=== PATIENT | male | born 1970 | race Two or more races ===

== ENCOUNTER 2018-01-24 15:16 | Observation (INO) | payer OTHER ==
[~2018-01-24] VITALS: Ht 177.8 cm; Wt 95.3 kg
[2018-01-24] MEDS ORDERED: FAMOTIDINE 20 MG/2 ML VIAL IV STA (15:26)
[2018-01-24] MEDS ORDERED: ASPIRIN 325 MG TAB PO ONE (15:30)
[2018-01-24] MEDS: NITROGLYCERIN 0.4 MG SUBL SL PRN (15:58)
[2018-01-24 15:59] LABS: BASOPHILS % 0.5 % (0.0-1.0); EOSINOPHILS # (AUTO) 0.2 (0.0-0.4); HEMATOCRIT 43.5 % (38.2-49.6); HEMOGLOBIN 14.5 g/dL (14.0-18.0); LYMPHOCYTES # (AUTO) 1.4 (1.0-3.2); LYMPHOCYTES % 16.8 % (18.0-39.1); MEAN CORPUSCULAR HGB CONC 33.3 g/dL (31-35); MEAN CORPUSCULAR VOLUME 84.1 fL (81-99); MONOCYTES # (AUTO) 0.8 (0.2-0.8); MONOCYTES % 10.2 % (4.4-11.3); NEUTROPHILS # (AUTO) 5.7 (2.1-6.9); NEUTROPHILS % 70.3 % (38.7-80.0); PLATELET COUNT 252 x10e3/uL (140-360); RED BLOOD COUNT 5.17 x10e6/uL (4.3-5.7); RED CELL DISTRIBUTION WIDTH 13.3 % (11.7-14.4)
[2018-01-24 16:25] LABS: ALANINE AMINOTRANSFERASE 67 IU/L (0-55); ALBUMIN 3.9 g/dL (3.5-5.0); ALBUMIN/GLOBULIN RATIO 1.1 (0.8-2.0); ALKALINE PHOSPHATASE 71 IU/L (40-150); BLOOD UREA NITROGEN 14 mg/dL (7-26); BUN/CREATININE RATIO 15 (6-25); CALCIUM 9.1 mg/dL (8.4-10.2); CARBON DIOXIDE 23 mmol/L (22-29); CHLORIDE 106 mmol/L (98-107); CREATININE, SERUM 0.93 mg/dL (0.72-1.25); EST GLOMERULAR FILTRATION RATE > 60 ML/MIN (60-); GLUCOSE 95 mg/dL (74-118); SODIUM 140 mmol/L (136-145)
[2018-01-24 16:46] LABS: CREATINE KINASE 401 IU/L (30-200)
[2018-01-24] MEDS ORDERED: NITROGLYCERIN 0.4 MG SUBL SL PRN (17:15)
--- NOTE | 2018-01-24 17:16 | Diagnostic Imaging Report ---
EXAMINATION: CHEST SINGLE (PORTABLE) INDICATION: \S\chest pain \S\[id number] \S\1620 COMPARISON: None FINDINGS: AP view TUBES and LINES: None. LUNGS: Limited by low lung volumes and body habitus. There is no evidence of pneumonia or pulmonary edema. PLEURA: No pleural effusion or pneumothorax. HEART AND MEDIASTINUM: The cardiac silhouette is borderline enlarged on this AP view. Median sternotomy wires. BONES AND SOFT TISSUES: No acute osseous lesion. Soft tissues are unremarkable. UPPER ABDOMEN: No free air under the diaphragm. IMPRESSION: Limited study. No definite acute thoracic abnormality. Signed by: Dr. Phil Lombardi MD on 01/24/2018 5:13 PM
[2018-01-24] MEDS: FAMOTIDINE 20 MG/2 ML VIAL IV SCH (17:19)
[2018-01-24 20:00] VITALS: BP 137/90
[2018-01-24 20:02] VITALS: BP 137/90
[2018-01-24 20:08] VITALS: BP 137/90
[2018-01-24] MEDS ORDERED: MORPHINE SULFATE 2 MG/ML SYR IV PRN (20:30)
[2018-01-24] MEDS ORDERED: ACETAMINOPHEN 325 MG TAB PO PRN (20:30)
--- NOTE | 2018-01-24 21:21 | History and Physical ---
CHIEF COMPLAINT: Chest pain that started an hour before he reached to the emergency room. HISTORY OF PRESENT ILLNESS: Mr. Ceballos is a 47-year-old male with a strong family history of heart disease. Patient had myocardial infarction in 2011 where he was emergently sandoval to have CABG. He presented to the emergency room with chest pain radiating to the left arm. Chest pain was associated with mild shortness of breath. He also has history of obstructive sleep apnea, but he is noncompliant with use of CPAP. He has history of UPP surgery in the past. He denies any chest pain now. He was given nitroglycerin and that helped in his pain. REVIEW OF SYSTEMS GENERAL: Denies any fever or chills. HEAD: Denies any head trauma. ENT: Denies any earache. CVS: As above. RESPIRATORY: No shortness of breath. The rest of the review systems are negative except as in the HPI. PAST MEDICAL HISTORY: Coronary artery disease, obstructive sleep apnea, acid reflux disease, and patient had possible fundoplication surgery that is what it sounds like. PAST SURGICAL HISTORY: Hernia repair, CABG in 2011. FAMILY AND SOCIAL HISTORY: He does not smoke, does not drink. Lives with his . They are originally from [place] and recently moved to [place]. PHYSICAL EXAM VITAL SIGNS: Temperature 98.7, pulse of 80, blood pressure 120/77, respiratory rate of 18, O2 sat 93% on room air. HEENT: Head atraumatic, normocephalic. NECK: Supple. CHEST: Clear to auscultation bilaterally. No wheezing. No crackles. HEART: S1, S2 audible. ABDOMEN: Soft, nontender, nondistended. EXTREMITIES: No clubbing, cyanosis, or edema. NEUROLOGIC: Awake, alert. No focal neurologic deficit. LABS: White count of 8000, hemoglobin 14, hematocrit 48.5, platelets 252. Chemistry is within normal limits. First set of cardiac enzymes is normal. BNP is less than 10. D-dimer was 0.17. ASSESSMENT: Mr. Ceballos is a 47-year-old male with typical chest pain and history of coronary artery disease. PLAN 1. We will admit the patient and do 3 sets of cardiac enzymes to rule out acute coronary syndrome. 2. Cardiology consult. 3. Resume home medications. 4. IV morphine and p.o. Tylenol for pain control. 5. Famotidine IV for history of acid reflux. Job#: [id number] RTY
[2018-01-25] VITALS (7 sets, daily range): BP systolic 64–143; BP diastolic 64–90
[2018-01-25 00:46] LABS: CREATINE KINASE 330 IU/L (30-200)
[2018-01-25 05:10] LABS: CHOL/HDL RATIO 3.6 (3.9-4.7); CHOLESTEROL 113 MD/DL (0-199); CREATINE KINASE 309 IU/L (30-200); HDL CHOLESTEROL 31 MG/DL (40-60); LDL CHOLESTEROL 54 MG/DL (60-130); TRIGLYCERIDES 140 MG/DL (0-149)
[2018-01-25] MEDS: FAMOTIDINE 20 MG/2 ML VIAL IV SCH ×2 (05:17→16:19)
[2018-01-25] MEDS: NITROGLYCERIN 0.4 MG SUBL SL PRN (07:32)
[2018-01-25] MEDS: ASPIRIN 325 MG TAB EC PO SCH (08:48)
[2018-01-25] MEDS ORDERED: ASPIR 8181 MG (09:08)
[2018-01-25] MEDS ORDERED: ATORVASTATIN CA10 MG PO (09:08)
[2018-01-25] MEDS ORDERED: LISINOPRIL5 MG (09:08)
[2018-01-25] MEDS ORDERED: METOPROLOL TART25 MG PO (09:08)
[2018-01-25] MEDS ORDERED: OMEPRAZOLE40 MG PO (09:08)
[2018-01-25] MEDS ORDERED: CLOPIDOGREL BISULFATE 75 MG TAB PO ONE ×2 (09:15→10:00)
[2018-01-25 13:45] LABS: CREATINE KINASE 288 IU/L (30-200)
--- NOTE | 2018-01-25 15:57 | Consultation ---
DATE OF CONSULTATION: January 25, 2018 CARDIAC CONSULTATION REASON FOR CONSULTATION: Unstable coronary syndrome, possible myocardial infarction. HISTORY: This is a 47-year-old gentleman whom in 2011 had coronary artery bypass surgery in [place] for 2 vessels. He is known to have hypercholesterolemia very, very and very strong family history of coronary artery disease in addition to hypertension. Patient was in his usual status of health for the last week. Whenever he does physical activity, he feels smothering and not feeling well. Yesterday, he had prolonged chest pain, retrosternal, radiating to his arms, to his back, and he was very alarmed. He came in. His CKs were very mildly elevated, but troponins were normal. The patient at rest seems to be comfortable without any chest pain. Patient's symptoms started a week ago as described above. Prior to that, he was doing relatively well. He does not do vigorous activity usually. He works in [employer]. REVIEW OF SYSTEMS GENERAL: No fever, no chills. HEENT: Unremarkable. PULMONARY: No cough, no hemoptysis. No recent travel. CARDIAC: Worsening anginal chest pain as described above. No orthopnea. No paroxysmal nocturnal dyspnea, possible from sleep apnea, snoring at night. GI: GERD symptoms, but no hematemesis and no melena, nicely controlled with Prilosec of many years' duration. This pain is totally different from that. : No hematuria. No dysuria. MUSCULOSKELETAL: No aches. No pain. GENERAL: No fever. No chills. SOCIAL HISTORY: He is . He works in [employer]. He has never smoked. He is non-alcohol drinker. HOME MEDICATIONS: Include; 1. Aspirin 81 mg a day. 2. Atorvastatin 80 mg a day. 3. Metoprolol tartrate 25 mg twice a day. 4. Omeprazole 20 mg twice a day. ALLERGIES: PENICILLIN AND CODEINE; THE PENICILLIN ALLERGY IS QUESTIONABLE, CODEINE IS MAINLY OF NOT FEELING WELL. PAST MEDICAL HISTORY 1. Coronary artery bypass surgery for 2 vessels in 2011. 2. Hypertension. 3. Hypercholesterolemia. 4. Sleep apnea. 5. GERD. FAMILY HISTORY: Father had bypass surgery at very young age in his 30s. All his paternal uncles are with coronary artery disease in very young age. Mother is relatively doing well. She is hypertensive. No siblings, 2 stepchildren. PHYSICAL EXAMINATION VITAL SIGNS: Height of 5 feet 10 inches, weight of 210 pounds, blood pressure 120/70, heart rate of 70, and respiratory rate of 18. HEENT: Pupils are equal and reactive. NECK: No elevation of jugular venous pulsation. No bruit. CHEST: Clear to auscultation and percussion. HEART: PMI in 5th intercostal space. Normal 1st and 2nd heart sounds. ABDOMEN: Soft with good bowel sounds. EXTREMITIES: No cyanosis. No clubbing. No edema. NEUROLOGIC: Nonfocal. LABORATORY DATA: Sodium of 140, potassium of 4, BUN of 14, and creatinine of 0.93, glucose of 95. Hemoglobin of 14.5, hematocrit 43%, and white blood cell count of 8.1. CKs are elevated. Troponins are normal. Lipid profile showed triglycerides of 140, cholesterol of 113, HDL of 31, and LDL of 54. IMPRESSION AND PLAN 1. Unstable coronary syndrome with unstable angina in patient with known coronary artery disease, 2 vessels coronary artery bypass surgery in [place] in 2011. 2. Hypercholesterolemia. 3. Very strong family history of coronary artery disease at very young age. 4. Hypertension. Patient will be given loading dose of Plavix. He will be on serial cardiac enzymes. He will be on telemetry. Options of workup are discussed. Patient opted for cardiac catheterization with possible intervention. Procedure, risks, benefits, alternatives are discussed and explained. Job#: [id number] MISTI
[2018-01-25] MEDS: METOPROLOL TARTRATE 25 MG TAB PO SCH (16:18)
[2018-01-25] MEDS ORDERED: PROMETHAZINE HCL 25 MG TAB PO PRN (16:45)
[2018-01-25] MEDS ORDERED: METOPROLOL TARTRATE 25 MG TAB PO SCH (17:00)
[2018-01-25] MEDS ORDERED: ENOXAPARIN SOD INJ 40 MG/0.4 ML SYR SC SCH (17:00)
[2018-01-25] MEDS ORDERED: ATORVASTATIN 40 MG TAB PO SCH ×2 (21:00)
[2018-01-26] VITALS: BP 147/80
[2018-01-26] MEDS ORDERED: SODIUM CHLORIDE 0.9% 1000ML 1,000 ML IV SCH (03:01)
[2018-01-26 04:00] VITALS: BP 136/91
[2018-01-26 05:27] LABS: BASOPHILS # (AUTO) 0.1 (0.0-0.1); BASOPHILS % 0.7 % (0.0-1.0); EOSINOPHILS # (AUTO) 0.2 (0.0-0.4); EOSINOPHILS % 2.5 % (0.0-6.0); HEMATOCRIT 41.2 % (38.2-49.6); HEMOGLOBIN 13.6 g/dL (14.0-18.0); LYMPHOCYTES # (AUTO) 1.9 (1.0-3.2); LYMPHOCYTES % 23.7 % (18.0-39.1); MEAN CORPUSCULAR HEMOGLOBIN 27.6 pg (28-32); MEAN CORPUSCULAR VOLUME 83.7 fL (81-99); MONOCYTES # (AUTO) 0.9 (0.2-0.8); MONOCYTES % 11.4 % (4.4-11.3); NEUTROPHILS % 61.5 % (38.7-80.0); PLATELET COUNT 242 x10e3/uL (140-360); RED BLOOD COUNT 4.92 x10e6/uL (4.3-5.7); RED CELL DISTRIBUTION WIDTH 13.4 % (11.7-14.4)
[2018-01-26] MEDS: FAMOTIDINE 20 MG/2 ML VIAL IV SCH (05:39)
[2018-01-26 05:49] LABS: ALANINE AMINOTRANSFERASE 48 IU/L (0-55); ALBUMIN 3.5 g/dL (3.5-5.0); ALBUMIN/GLOBULIN RATIO 1.1 (0.8-2.0); ALKALINE PHOSPHATASE 69 IU/L (40-150); BLOOD UREA NITROGEN 12 mg/dL (7-26); BUN/CREATININE RATIO 13 (6-25); CALCIUM 8.9 mg/dL (8.4-10.2); CARBON DIOXIDE 23 mmol/L (22-29); CHLORIDE 107 mmol/L (98-107); EST GLOMERULAR FILTRATION RATE > 60 ML/MIN (60-); GLUCOSE 99 mg/dL (74-118); SODIUM 141 mmol/L (136-145)
[2018-01-26] MEDS ORDERED: PANTOPRAZOLE SOD 40 MG TABEC PO SCH (07:30)
[2018-01-26 08:30] VITALS: BP 141/94
[2018-01-26 08:32] VITALS: BP 141/94
[2018-01-26] MEDS ORDERED: LIDOCAINE HCL 1% LOCAL INJ 20 ML VIAL ONE (08:46)
[2018-01-26] MEDS ORDERED: IOPAMIDOL 370 MG/ML 200 ML INFUS..BTL INJ ONE (08:46)
[2018-01-26] MEDS ORDERED: HEPARIN SOD/SOD CHLORIDE 2,000 ML ONE (08:46)
[2018-01-26] MEDS ORDERED: SODIUM CHLORIDE 0.9% 1000ML 1,000 ML ONE (08:59)
[2018-01-26] MEDS ORDERED: MIDAZOLAM HCL 2 MG/2 ML VIAL ONE (09:00)
[2018-01-26] MEDS ORDERED: FENTANYL CITRATE/PF 100MCG/2 ML INJ ONE (09:00)
[2018-01-26] MEDS ORDERED: CLOPIDOGREL BISULFATE 75 MG TAB PO SCH (09:00)
[2018-01-26] MEDS: ASPIRIN 325 MG TAB EC PO SCH (10:00)
[2018-01-26] MEDS: METOPROLOL TARTRATE 25 MG TAB PO SCH (10:00)
[2018-01-26 11:26] VITALS: BP 112/64
--- NOTE | 2018-01-26 13:07 | Operative Report ---
DATE OF PROCEDURE: . TITLE OF PROCEDURE: Left cardiac catheterization with graft injection INDICATIONS 1. Coronary artery disease. 2. Prior coronary artery bypass surgery in 2011. 3. Presentation with unstable coronary syndrome, hyperlipidemia, very strong family history of premature coronary artery disease. TECHNICAL DETAILS: After discussions of the procedure's pros, cons, and discussion for invasive-noninvasive workup, patient insisted on having invasive workup because of his premature history of coronary artery disease at very young age, very strong family and his symptoms. For that reason, patient scheduled for his procedure. IV hydration started prior to the procedure. Patient brought to the cardiac laborer hide house. After the usual sterile preparation and draping procedure, intravenous Versed and fentanyl given for sedation, local Xylocaine for anesthesia. A 4-Macedonian sheath established in the right common femoral artery. Joycelyn left 4 and 3DRC catheters to engage the left main, right coronary artery, left internal mammary artery, and saphenous venous graft to the OM. Pigtail for hemodynamic measurement and left ventriculogram. At the end of the procedure, sheath was removed. Hemostasis achieved manually. No complication. No blood loss. RESULTS A. Coronary angiogram: 1. Left main: There is distal left main disease at 80%. 2. LAD: Large artery with minimal plaquing. 3. Circumflex coronary artery: Giving small 2 obtuse marginal branch. 4. Right coronary artery: Dominant artery with diffuse disease at 40%. 5. Left internal mammary artery to LAD is patent. 6. Saphenous venous graft to the 1st obtuse marginal is patent. The distal obtuse marginal is small artery 1 to 1.5 mm in diameter with several lesions at 50%. B. Hemodynamics: Aorta pressure 130/80. LV pressure 130/18. C. Left ventriculogram in the right anterior oblique view showed normal size ventricle with an ejection fraction of 60% to 70%. IMPRESSION 1. Severe left main coronary artery disease. 2. Mild coronary artery disease of all the arteries. 3. Patent left internal mammary artery to left anterior descending. 4. Patent saphenous venous graft to the obtuse marginal. 5. Left ventricular ejection fraction of 70%. COMPLICATIONS: None. BLOOD LOSS: None. RECOMMENDATIONS: Aggressive medical therapy. Job#: [id number] LPA
--- OUTSIDE RECORDS SUMMARY | 2018-01-27 13:46 | XMS REPORT ---
Author [facility] Address Unknown Phone Unavailable Care Team Providers Care [place] Operator Name Role Phone JEANNIE JORDAN Unavailable Unavailable Problems This patient has no known problems. Allergies, Adverse Reactions, Alerts This patient has no known allergies or adverse reactions. Medications This patient has no known medications. 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 LUNGS: Limited by low lung volumes and body habitus. There is no evidence of pneumonia or pulmonary edema. PLEURA: No pleural effusion or pneumothorax. HEART AND MEDIASTINUM: The cardiac silhouette is borderline enlarged on this AP view. Median sternotomy wires. BONES AND SOFT TISSUES: No acute osseous lesion. Soft tissues are unremarkable. UPPER ABDOMEN: No free air under the diaphragm. IMPRESSION: Limited study. No definite acute thoracic abnormality. Signed by: Dr. Phil Schuster MD on 01/24/2018 5:13 PM Dictated By: PHIL SCHUSTER MD 12 Transcribed By: RENATO on 01/24/181712 COPY TO: DESIRE GUARDADO MD
--- NOTE | 2018-01-27 14:59 | Discharge Summary ---
FINAL DIAGNOSES 1. Coronary artery disease. 2. Chest pain. 3. Hypertension. 4. Obstructive sleep apnea. ADMISSION HISTORY AND HOSPITAL COURSE: Mr. Ceballos is a 47-year-old male admitted with chest pain. Patient's D-dimer was normal. Patient has significant history of coronary artery disease. Dr. Mackenzie evaluated the patient. A cardiac cath was done, and it showed severe left main coronary artery disease, mild coronary artery disease in all 3 arteries, patent grafts, and no intervention was done. Aggressive medical therapy was recommended. Patient was told about this, and he was discharged since he was cleared by Cardiology to be discharged. He will follow up with his primary care physician. He will follow up with me for sleep apnea and follow up with Cardiology. JEANNIE JORDAN MD Job#: [id number] EV
== END 2018-01-26 15:13 | disposition home or self-care (01) ==
LOC: ER 15:16 → ERHOLD 17:08 → IMCU 19:20
PROVIDERS: ADMIT Internal Medicine; ATTEND Internal Medicine
DX: I25.700 Atherosclerosis of coronary artery bypass graft(s), unspecified, with unstable angina pectoris (principal); I10 Essential (primary) hypertension; I25.2 Old myocardial infarction; Z95.1 Presence of aortocoronary bypass graft; Z88.6 Allergy status to analgesic agent; Z88.5 Allergy status to narcotic agent; Z88.0 Allergy status to penicillin; Z82.49 Family history of ischemic heart disease and other diseases of the circulatory system; G47.33 Obstructive sleep apnea (adult) (pediatric); Z91.19 Patient's noncompliance with other medical treatment and regimen; E78.00 Pure hypercholesterolemia, unspecified
CPT/HCPCS: 36415 ×2; 71045; 80053 ×2; 80061; 82550 ×2; 82553 ×2; 83880; 84484 ×2; 85025 ×2; 85379; 93005; 93458; 99284; C1766; G0378 ×3; J1650; J2001; J2250; J2270; J7030 ×2; Q9967; S0164; 93459

== ENCOUNTER → 2018-02-18 | Outpatient (CLI) | payer OTHER ==
[~2018-02-18] MED LIST: ASPIR 8181 MG; ATORVASTATIN CA10 MG PO; LISINOPRIL5 MG; METOPROLOL TART25 MG PO; OMEPRAZOLE40 MG PO
[2018-02-18 07:58] LABS: BASOPHILS % 0.7 % (0.0-1.0); EOSINOPHILS # (AUTO) 0.1 (0.0-0.4); EOSINOPHILS % 2.1 % (0.0-6.0); HEMATOCRIT 45.7 % (38.2-49.6); HEMOGLOBIN 15.1 g/dL (14.0-18.0); LYMPHOCYTES # (AUTO) 1.2 (1.0-3.2); LYMPHOCYTES % 20.3 % (18.0-39.1); MEAN CORPUSCULAR HEMOGLOBIN 27.8 pg (28-32); MEAN CORPUSCULAR VOLUME 84.2 fL (81-99); MONOCYTES # (AUTO) 0.6 (0.2-0.8); MONOCYTES % 9.9 % (4.4-11.3); NEUTROPHILS % 66.5 % (38.7-80.0); PLATELET COUNT 245 x10e3/uL (140-360); RED BLOOD COUNT 5.43 x10e6/uL (4.3-5.7); RED CELL DISTRIBUTION WIDTH 13.8 % (11.7-14.4)
[2018-02-18 08:13] LABS: ALANINE AMINOTRANSFERASE 40 IU/L (0-55); ALBUMIN 3.9 g/dL (3.5-5.0); ALBUMIN/GLOBULIN RATIO 1.2 (0.8-2.0); ALKALINE PHOSPHATASE 76 IU/L (40-150); BLOOD UREA NITROGEN 10 mg/dL (7-26); BUN/CREATININE RATIO 11 (6-25); CALCIUM 9.3 mg/dL (8.4-10.2); CARBON DIOXIDE 27 mmol/L (22-29); CHLORIDE 101 mmol/L (98-107); CHOL/HDL RATIO 4.2 (3.9-4.7); CHOLESTEROL 146 MD/DL (0-199); CREATININE, SERUM 0.93 mg/dL (0.72-1.25); EST GLOMERULAR FILTRATION RATE > 60 ML/MIN (60-); GLUCOSE 110 mg/dL (74-118); HDL CHOLESTEROL 35 MG/DL (40-60); LDL CHOLESTEROL 82 MG/DL (60-130); SODIUM 138 mmol/L (136-145); TRIGLYCERIDES 147 MG/DL (0-149)
[2018-02-18 08:35] LABS: THYROID STIMULATING HORMONE 0.986 uIU/mL (0.350-4.940)
== END ==
LOC: LAB 07:30
PROVIDERS: ATTEND Student in an Organized Health Care Education/Training Program
DX: I10 Essential (primary) hypertension (principal); I25.10 Atherosclerotic heart disease of native coronary artery without angina pectoris; G47.33 Obstructive sleep apnea (adult) (pediatric); E78.2 Mixed hyperlipidemia; R53.83 Other fatigue
CPT/HCPCS: 36415; 80053; 80061; 84402; 84443; 85025

== ENCOUNTER → 2018-03-10 | Outpatient (CLI) | payer OTHER ==
--- NOTE | 2018-03-17 15:43 | Polysomnography ---
DATE OF STUDY: POLYSOMNOGRAPHY CHIEF COMPLAINT: Snoring and excessive daytime fatigue and sleepiness. Patient also has some witnessed apnea at night. INTERPRETATION: The patient came to the laboratory for a split night study. During the diagnostic portion of the study, the patient slept for 118 minutes out of 207 minutes. Sleep sufficient was 57%. The sleep onset latency was 23 minutes. The patient never achieved REM sleep. There are 48 apneic events and 24 hypopneic events. The apnea and hypopnea index was 36.6 events per hour. The minimal heart rate was 44 beats per minute. The patient spent 9.7% of the night in the supine position. The remainder of the night was in the non-supine position. The minimal saturation was 88%. The [place] sleep score was 11. During the therapeutic portion of the night, the patient slept for 221.5 minutes out of 239 minutes. The sleep efficiency was 93%. The sleep onset latency was 7 minutes. The patient spent 26 minutes in REM sleep, which was 11.7% of the night. The key holder desensitized the patient to a CPAP and initiated CPAP at 4 cm of water pressure. The patient gradually increased to CPAP to 13 cm of water pressure. At 13 cm of water pressure, the patient still had nocturnal events. Patient was switched to BiPAP and the BiPAP was increased to 14/9 and then 15/10. At a pressure of 15/10, the nocturnal events were successfully eliminated. IMPRESSION 1. Severe obstructive sleep apnea. 2. Successful treatment of obstructive sleep apnea with BiPAP. RECOMMENDATIONS 1. BiPAP at 15/10 with a heated humidified. 2. ResMed air-lift F10 full face mask of a large size. 3. Avoid alcohol or sedatives prior to retiring at night. 4. Achieve and maintain an ideal body weight. 5. Follow up in 8-12 weeks to ensure efficacy and compliance with CPAP. Job#: [id number] REBECCA
== END ==
LOC: SLEEP 20:14
PROVIDERS: ATTEND Student in an Organized Health Care Education/Training Program
DX: G47.33 Obstructive sleep apnea (adult) (pediatric) (principal)
CPT/HCPCS: 95811

== ENCOUNTER 2019-01-05 13:47 | Emergency (ER) | payer OTHER ==
[~2019-01-05] VITALS: Ht 177.8 cm; Wt 95.3 kg
[2019-01-05 14:56] VITALS: BP 139/92
[2019-01-05] MEDS ORDERED: CIPROFLOXACIN 500 MG TAB PO SCH (15:00)
== END 2019-01-05 14:59 | disposition home or self-care (01) ==
LOC: ER 13:47
DX: Z20.811 Contact with and (suspected) exposure to meningococcus (principal)
CPT/HCPCS: 99282

== ENCOUNTER 2019-02-06 18:43 | Emergency (ER) | payer SELFPAY ==
[~2019-02-06] VITALS: Ht 177.8 cm; Wt 95.3 kg
[2019-02-06] MEDS ORDERED: HYDROCODONE/APAP 5MG-325MG TAB PO ONE (19:15)
[2019-02-06] MEDS ORDERED: MAGNESIUM/ALUMINUM/SIMETHICONE 30 ML UDC ONE (19:15)
[2019-02-06] MEDS ORDERED: MAGNESIUM/ALUMINUM/SIMETHICONE 30 ML UDC PO ONE (19:15)
[2019-02-06] MEDS ORDERED: HYDROCODONE/APAP 5MG-325MG TAB ONE (19:16)
[2019-02-06] MEDS ORDERED: METHYLPREDNISOLONE SOD SUCC 40 MG/ML VIAL 1ML IV ONE (20:15)
[2019-02-06] MEDS ORDERED: METHYLPREDNISOLONE SOD SUCC 125 MG/2ML VIAL ONE (20:32)
[2019-02-06] MEDS ORDERED: METHYLPREDNISOLONE SOD SUCC 125 MG/2ML VIAL IV ONE (20:45)
[2019-02-07] MEDS ORDERED: INDOMETHACIN 75 MG CAPCR PO SCH (09:00)
== END 2019-02-06 21:09 | disposition home or self-care (01) ==
LOC: FSED 18:43
DX: M79.671 Pain in right foot (principal); M10.9 Gout, unspecified; I10 Essential (primary) hypertension; E78.5 Hyperlipidemia, unspecified; K21.9 Gastro-esophageal reflux disease without esophagitis; I25.2 Old myocardial infarction

== ENCOUNTER 2019-03-22 07:55 | Emergency (ER) | payer OTHER ==
[~2019-03-22] VITALS: Ht 177.8 cm; Wt 95.3 kg
[2019-03-22 08:03] VITALS: BP 158/107
== END 2019-03-22 08:05 | disposition home or self-care (01) ==
LOC: ER 08:01
DX: L73.9 Follicular disorder, unspecified (principal)
CPT/HCPCS: 99282